=== PATIENT | female | born 2000 | race Caucasian/White ===

== ENCOUNTER 2023-10-26 22:32 | Emergency (ER) | payer SELFPAY ==
[~2023-10-26] VITALS: Ht 160 cm; Wt 115.7 kg
[2023-10-26 22:35] VITALS: BP 156/103; PULSE 97; RESP 16; TEMP 97.6; O2SAT 98
[2023-10-26] MEDS: ONDANSETRON 4 MG ODT PO ONE (22:53)
[2023-10-26 23:17] VITALS: BP 156/103; PULSE 97; RESP 16; TEMP 97.6; O2SAT 98
[2023-10-26] MEDS: NACL 0.9% 1,000 ML IV ONE (23:57)
[2023-10-27] MEDS ORDERED: ONDA8TAB87 PO (00:01)
== END 2023-10-27 01:00 | disposition home or self-care (01) ==
LOC: MED 22:32
DX: R11.2 Nausea with vomiting, unspecified (principal); R42 Dizziness and giddiness; Z79.899 Other long term (current) drug therapy
CPT/HCPCS: 81002; 96360; 99283; J7030; Q0162